=== PATIENT | female | born 1950 | race Caucasian/White ===

== ENCOUNTER 2016-11-13 09:14 | Day surgery (SDC) | payer MEDICARE, OTHER ==
--- NOTE | ~2016-11-13 | EGD ---
EGD REPORT [facility] [address] [place] [address] NAME: JILL GONZALEZ : [birth year] STATUS : REG [facility] [place] PAT#: [id number] AGE: 65 ADM/REG DATE : 11/13/16 MR#: [id number] REPORT SERV DATE: 11/13/16 DICTATED BY: MARIBELL PATEL DATE: 11/13/16 REPORT STATUS : Draft TRANSCRIBED BY: [facility] DATE: 11/13/16 [facility] Patient Name: Jill Gonzalez Date of : 1950 Attending MD: MARIBELL PATEL MD Procedure Date No Time: 11/13/2016 Procedure: Colonoscopy Indications: Screening for colorectal malignant neoplasm Referring MD: LISA LANG MD Medicines: as per anesthesia Complications: No immediate complications. Procedure: Pre-Anesthesia Assessment: - ASA Grade Assessment: I - A normal, healthy patient. After I obtained informed consent, the scope was passed under direct vision. Throughout the procedure, the patient's blood pressure, pulse, and oxygen saturations were monitored continuously. The PCF [id number] was introduced through the anus and advanced to the cecum, identified by appendiceal orifice and ileocecal valve. The colonoscopy was somewhat difficult due to restricted mobility of the colon, significant looping and a tortuous colon. The patient tolerated the procedure. The quality of the bowel preparation was adequate to identify polyps. Findings: The perianal and digital rectal examinations were normal. A few medium-mouthed diverticula were found in the transverse colon and in the ascending colon. Internal hemorrhoids were found during endoscopy and were mild. Impression: - Diverticulosis in the transverse colon and in the ascending colon. - Internal hemorrhoids. Recommendation: - Repeat colonoscopy in 10 years for surveillance. Procedure Code(s): --- Professional --- 45420, Colonoscopy, flexible, proximal to splenic flexure; diagnostic, with or without collection of specimen(s) by brushing or washing, with or without colon decompression (separate procedure) Diagnosis Code(s): --- Professional --- K64.8, Other hemorrhoids EGD REPORT [facility] [address] [place]. [address] NAME: JILL GONZALEZ : 50 STATUS : REG [facility] [place] PAT#: [id number] AGE: 65 ADM/REG DATE : 11/13/16 MR#: [id number] REPORT SERV DATE: 11/13/16 DICTATED BY: MARIBELL PATEL. DATE: 11/13/16 REPORT STATUS : Draft TRANSCRIBED BY: [employer] DATE: 11/13/16 K57.30, Diverticulosis of large intestine without perforation or abscess without bleeding Z12.11, Encounter for screening for malignant neoplasm of colon CPT copyright 2013 [employer]. All rights reserved. The codes documented in this report are preliminary and upon cpc coder review may be revised to meet current compliance requirements. MARIBELL PATEL MD 11/13/2016 12:30 PM This report has been signed electronically. Number of Addenda: 0 Note Initiated On: 11/13/2016 11:58 AM Scope Withdrawal Time 0 hours 5 minutes 44 seconds [address] [place] [address]
[~2016-11-13 09:14] MED LIST: COZ50 PO; ESTRACE VAGIN42.5 GM V; ESTRADIOL; MAX25 PO; METHOC750B PO; NORITATE1% TOP; RELA5 PO; SINGULAIR1 PO; ULTRAM50 PO; VOLTAREN1 % TOP; [UNRECOGNIZED DRUG - OTHER]
== END 2016-11-13 23:59 | disposition home or self-care (01) ==
LOC: DMU 09:14
PROVIDERS: Internal Medicine Gastroenterology
PROC: 0DJD8ZZ Inspection of Lower Intestinal Tract, Via Natural or Artificial Opening Endoscopic (ICD-10-PCS; principal; 2016-11-13 11:00)
DX: Z12.11 Encounter for screening for malignant neoplasm of colon (principal); K64.8 Other hemorrhoids; K57.30 Diverticulosis of large intestine without perforation or abscess without bleeding; Z86.010 Personal history of colon polyps; Z88.1 Allergy status to other antibiotic agents; Z90.710 Acquired absence of both cervix and uterus; Z90.49 Acquired absence of other specified parts of digestive tract; Z98.890 Other specified postprocedural states